=== PATIENT | male | born 1945 | race Caucasian/White ===

== ENCOUNTER 2018-09-27 09:23 | Day surgery (SDC) | payer MEDICARE, OTHER, SELFPAY ==
--- NOTE | 2018-09-27 | PATH_ITS ---
[facility] Accession Number: [id number] . 01 Material submitted: . TRANSVERSE COLON POLYP . 02 Diagnosis: Biopsy, Transverse Colon Polyp: Tubular adenoma. MRV/09/29/2018 . 02 Electronically signed: . Jan Mobley MD, Pathologist NPI- [id number] . 01 Gross description: . Received one formalin-filled container labeled with the patient's name and labeled transverse colon polyp. The specimen consists of a 0.3 cm portion of tissue. Entirely submitted in one cassette. ([facility] [place]:[id number]) /[facility] . 02 Pathologist provided ICD-10: D12.3 . 02 CPT . 487726 Performed at: 01 [facility] [address] [id number] MD Kip Brink MD Phone: [phone] Performed at: 02 [facility] [address] [place], [place] [id number] MD Ting Echeverria MD Phone: [phone]
[2018-09-27 09:36] VITALS: BMI 28.7
[2018-09-27 09:41] VITALS: BP 143/84; PULSE 64; RESP 16; TEMP 36.3; O2SAT 99
--- NOTE | 2018-09-27 09:46 | PM.HP.1 ---
History of Present Illness Date Patient Seen: 09/27/18 Chief complaint: [id number] COLONOSOCPY W/POSS BX Narrative: The patient is a 73-year-old male who was last seen in our office on August 29, 2018 due to a positive FIT test. Please refer to that note for further details. Patient has had no visual bleeding in the form of melena, hematemesis, or hematochezia. He has had no prior colonoscopies and there is no family history of colon cancer to his knowledge Patient History Medical History Hypercholesterolemia (Acute) Hypertension (Acute) Hypothyroidism (Acute) Positive FIT (fecal immunochemical test) (Acute) Surgical History History of tonsillectomy (Acute) Social History household members: spouse Family & Social History Social History: household members spouse Meds Home Medications Medication Instructions Recorded Confirmed Type amlodipine 09/26/18 History atorvastatin 09/26/18 History losartan 09/26/18 History Allergies Allergy/AdvReac Type Severity Reaction Status Date / Time No Known Drug Allergies Allergy Verified 09/26/18 14:23 Exam Vital Signs (past 8 hours): - 09/27/18 09:41 Temperature 97.3 F L Pulse Rate 64 Respiratory Rate 16 Blood Pressure 143/84 H Pulse Oximetry 99 Oxygen Delivery Method Room Air Narrative Exam Narrative: General: Patient is overweight, not in apparent distress Cardiovascular: Regular rate and rhythm, no murmurs, rubs, or gallops; no evidence of edema; no palpable abdominal aortic aneurysm Gastrointestinal: Normoactive bowel sounds, soft, nontender, nondistended, no rebound tenderness, no hepatosplenomegaly, no evidence of hernia Assessment & Plan Assessment & Plan narrative: 73-year-old male with history of a positive FIT test who is here for colonoscopy Regarding the procedure(s), the risks and potential complications, benefits, and alternatives (including not doing the procedure) were discussed with the patient. The risks include but are not limited to bleeding, splenic injury, infection, perforation which may require surgical intervention, missed lesions, and adverse reactions to sedative medicines. After a question and answer period, the patient agreed to proceed with the procedure(s) and gives informed consent.
--- NOTE | 2018-09-27 09:48 | PM.OP.ENDO ---
Operative Date/Time/Diagnoses Date of procedure: 09/27/18 Procedure Notes Procedure in detail: Surgeon: Shen Chaney MD Procedure: Colonoscopy with polypectomy Preoperative diagnosis: Positive FIT Postoperative diagnosis: Transverse colon polyp status post polypectomy, grade 2 internal hemorrhoids Medications: Conscious sedation using 4 mg IV of Midazolam and 100 mcg IV of Fentanyl Preanesthesia Assessment An H and P was performed/updated and the Px?s ASA class is 2. The procedure was discussed in detail with the patient. The potential risks and complications including infection, bleeding, missed lesions, perforation, need for surgery in case of perforation, prolonged hospital stay, and were explained. A brief question and answer period was allotted and once all questions were answered, informed consent was obtained. The patient was brought back to the procedure room and placed on standard monitoring. The patient?s vital signs were monitored continuously throughout the entire procedure. Prior to starting, a timeout was performed to confirm the patient?s identity, allergies, medications, and procedure. Procedure in detail The patient was placed in left lateral decubitus position and once adequate sedation was obtained a FATUMA was performed. The digital rectal examination did not reveal any palpable lesions. The tip of the colonoscope was placed in the anal canal and advanced without difficulty all the way to the cecum which was identified by the appendiceal orifice and the ileocecal valve. The terminal ileum was intubated to a distance of 5 cm from the ileocecal valve and the mucosa appeared without abnormality. The colonoscope was then brought back to the cecum and aareful examination of all jeffers of the colon was performed with irrigation of any residual stool. In the proximal transverse colon there was note of a 2 mm sessile polyp which was removed by means of cold Jumbo forceps. Resection and retrieval were complete with minimal bleeding Retroflexion was performed in the rectum which revealed grade 2 nonbleeding internal hemorrhoids. The patient tolerated the procedure well and will be brought back to the recovery area to be discharged once criteria are met. The prep was judged to be good/excellent and adequate to identify polyps less than 5 mm. The withdrawal time was 10 min. The total physician intraservice time was 20 min. Complications There were no complications and estimated blood loss was minimal. Recommendations: Resume previous diet Continue outPx medications Follow up pathology results Repeat colonoscopy in 5 years for surveillance if the polyp is adenomatous GI Office follow up as needed An emergency contact number was given to the patient for any complications related to the procedure
[2018-09-27] MEDS: SODIUM CHLORIDE 0.9% 1,000 ML 70 ML IV (09:50)
[2018-09-27] MEDS: fentaNYL 250 MCG/5 ML INJ IV (10:05)
[2018-09-27] MEDS: MIDAZOLAM 5 MG/5 ML VIAL IV (10:05)
[2018-09-27 10:21] VITALS: BP 105/57; PULSE 64; RESP 15; TEMP 36.4; O2SAT 97
--- NOTE | 2018-09-27 10:21 | PM.DS.1 ---
History of Present Illness Chief complaint: [id number] COLONOSOCPY W/POSS BX Narrative: The patient is a 73-year-old male who was last seen in our office on August 29, 2018 due to a positive FIT test. Please refer to that note for further details. Patient has had no visual bleeding in the form of melena, hematemesis, or hematochezia. He has had no prior colonoscopies and there is no family history of colon cancer to his knowledge Discharge Providers Discharge Date: 09/27/18 Primary care physician: Sabino Adhikari MD Discharge provider: Shen Chaney MD Exam Vital Signs (past 8 hours): - 09/27/18 09:41 Temperature 97.3 F L Pulse Rate 64 Respiratory Rate 16 Blood Pressure 143/84 H Pulse Oximetry 99 Oxygen Delivery Method Room Air Narrative Exam Narrative: General: Patient is overweight, not in apparent distress Cardiovascular: Regular rate and rhythm, no murmurs, rubs, or gallops; no evidence of edema; no palpable abdominal aortic aneurysm Gastrointestinal: Normoactive bowel sounds, soft, nontender, nondistended, no rebound tenderness, no hepatosplenomegaly, no evidence of hernia Discharge Plan Discharge Plan Patient Disposition: Home Discharge comment: Resume your usual meds today once home. Discharge Med Rec/Prescriptions Prescriptions: Continued amlodipine RF: 0 atorvastatin RF: 0 losartan RF: 0 levothyroxine 100 mcg PO DAILY RF: 0 Follow up/Referrals: Sabino Adhikari MD [Primary Care Provider] - Discharge Orders: Discharge (Order); Ordered 09/27/18 Ordered By: Shen Chaney Provider Discharge Instructions Diet: Diet as Tolerated Visit Report/Discharge Packet Stand Alone Forms: Colonoscopy Result: [facility] Discharge Data Primary Care Provider: Sabino Adhikari V Attending Provider: Shen Chaney
[2018-09-27 10:26] VITALS: BP 118/70; PULSE 75; RESP 12; O2SAT 96
[2018-09-27 10:31] VITALS: BP 129/66; PULSE 62; RESP 18; O2SAT 95
[2018-09-27 10:34] VITALS: BP 113/64; PULSE 71; RESP 15; TEMP 36.2; O2SAT 96
[2018-09-27 10:46] VITALS: BP 121/70; PULSE 77; RESP 17; TEMP 36.3; O2SAT 98
== END 2018-09-27 11:00 | disposition home or self-care (01) ==
PROVIDERS: PCP Internal Medicine; Visit Provider Internal Medicine Gastroenterology
PROC: 0DJD8ZZ Inspection of Lower Intestinal Tract, Via Natural or Artificial Opening Endoscopic (ICD-10-PCS; CPT 45378; principal; 2018-09-27 10:30)
DX: R19.5 Other fecal abnormalities (principal); D12.3 Benign neoplasm of transverse colon; K64.1 Second degree hemorrhoids; E78.00 Pure hypercholesterolemia, unspecified; I10 Essential (primary) hypertension; E03.9 Hypothyroidism, unspecified
CPT/HCPCS: 45380; 88305; J2250; J3010

== ENCOUNTER → 2019-10-11 18:42 | Outpatient (ROUT) | payer MEDICARE, OTHER, SELFPAY ==
[2019-10-11 19:13] LABS: Add Manual Diff / Slide Review NO; Basophils Absolute Auto 100 /uL (0-100); Basophils Percent Auto 0.7 % (0-2); Eosinophils Absolute Auto 100 /uL (0-450); Eosinophils Percent Auto 1.4 % (2-4); Hematocrit 47.6 % (41-53); Hemoglobin 16.2 g/dL (13.5-17.5); Lymphocytes Absolute Auto 1900 /uL (1100-4500); Lymphocytes Percent Auto 28.4 % (25-40); Mean Corpuscular Hemoglobin 30.8 PG (26-34); Mean Corpuscular Volume 90.7 fL (80-100); Monocytes Absolute Auto 600 /uL (0-900); Monocytes Percent Auto 8.1 % (3-14); Neutrophils Absolute Auto 4200 /uL (1500-7000); Neutrophils Percent Auto 61.4 % (50-75); Platelet Count 237 X10^3/uL (150-400); Red Blood Cell Count 5.24 X10^6/uL (4.5-5.9); Red Cell Distribution Width 13.5 % (11.6-14.8); White Blood Cell Count 6.8 X10^3/uL (4.5-11.0)
[2019-10-11 19:38] LABS: Alanine Aminotransferase 26 IU/L (<50); Albumin 4.4 g/dL (3.5-5.0); Albumin Globulin Ratio 1.5 (1.0-2.8); Alkaline Phosphatase 80 U/L (38-126); Aspartate Aminotransferase 30 IU/L (17-59); Bilirubin Total 1.4 mg/dL (0.2-1.3); Blood Urea Nitrogen 19 mg/dL (9-20); Carbon Dioxide 27 mmol/L (22-32); Chloride 102 mmol/L (98-107); Cholesterol 109 mg/dL (140-199); Estimated Glomerular Filt Rate > 60.0 mL/min (>60); Globulin 2.9 g/dL (1.7-4.1); Glucose 80 mg/dL (80-110); HDL Cholesterol 31 mg/dL (40-60); HEMOLYSIS < 15 (0-50); LDL Cholesterol Calculated 45 mg/dL (<100); Potassium 4.1 mmol/L (3.4-5.1); Sodium 138 mmol/L (137-145); Total Protein 7.3 g/dL (6.3-8.2); Triglycerides 163 mg/dL (35-150)
== END ==
PROVIDERS: PCP Internal Medicine; Visit Provider Internal Medicine
DX: I20.8 Other forms of angina pectoris (principal); E78.2 Mixed hyperlipidemia; E03.9 Hypothyroidism, unspecified
CPT/HCPCS: 80053; 80061; 84443; 85025

== ENCOUNTER → 2020-05-19 19:22 | Outpatient (ROUT) | payer MEDICARE, OTHER, SELFPAY ==
[2020-05-19 20:25] LABS: Aspartate Aminotransferase 28 IU/L (17-59); BUN Creatinine Ratio 24.3 (6-22); Blood Urea Nitrogen 25 mg/dL (9-20); Calcium 10.1 mg/dL (8.4-10.2); Carbon Dioxide 28 mmol/L (22-32); Chloride 101 mmol/L (98-107); Cholesterol 112 mg/dL (140-199); Estimated Glomerular Filt Rate > 60.0 mL/min (>60); Glucose 82 mg/dL (80-110); HDL Cholesterol 30 mg/dL (40-60); HEMOLYSIS < 15 (0-50); LDL Cholesterol Calculated 48 mg/dL (<100); Sodium 138 mmol/L (137-145); Triglycerides 168 mg/dL (35-150)
[2020-05-19 20:28] LABS: Add Manual Diff / Slide Review NO; Basophils Absolute Auto 100 /uL (0-100); Basophils Percent Auto 0.8 % (0-2); Eosinophils Absolute Auto 100 /uL (0-450); Eosinophils Percent Auto 1.6 % (2-4); Hematocrit 45.8 % (41-53); Hemoglobin 15.5 g/dL (13.5-17.5); Lymphocytes Absolute Auto 1800 /uL (1100-4500); Lymphocytes Percent Auto 26.2 % (25-40); Mean Corpuscular HGB Conc 33.9 % (30-36); Mean Corpuscular Hemoglobin 30.4 PG (26-34); Mean Corpuscular Volume 89.4 fL (80-100); Monocytes Absolute Auto 700 /uL (0-900); Monocytes Percent Auto 10.7 % (3-14); Neutrophils Absolute Auto 4200 /uL (1500-7000); Neutrophils Percent Auto 60.7 % (50-75); Platelet Count 240 X10^3/uL (150-400); Red Blood Cell Count 5.12 X10^6/uL (4.5-5.9); Red Cell Distribution Width 13.4 % (11.6-14.8); White Blood Cell Count 6.9 X10^3/uL (4.5-11.0)
[2020-05-19 20:54] LABS: TSH w/ Reflex to FT4 5.23 uIU/mL (0.47-4.68)
[2020-05-20 00:02] LABS: Free T4, Direct Thyroxine 1.32 ng/dL (0.78-2.19)
== END ==
PROVIDERS: PCP Internal Medicine; Visit Provider Internal Medicine
DX: I10 Essential (primary) hypertension (principal); E78.2 Mixed hyperlipidemia
CPT/HCPCS: 80048; 80061; 84439; 84443; 84450; 85025

== ENCOUNTER → 2020-05-22 13:05 | Outpatient (CLI) | payer MEDICARE, OTHER, SELFPAY ==
--- NOTE | 2020-05-22 | DI.RAD.S_ITS ---
PROCEDURE: FL BARIUM SWALLOW INDICATIONS: Dysphagia, unspecified COMPARISON: None. FINDINGS: Function: There is normal esophageal peristalsis. Mild gastroesophageal reflux was elicited. There is obstruction transit of a calibrated barium tablet at the junction secondary to Schatzki's ring. Morphology: Air-contrast images demonstrate normal mucosal morphology. There is a small hiatal hernia. Limited images of the stomach demonstrate normal appearance. IMPRESSION: 1. Obstruction of a calibrated barium tablet at the gastroesophageal junction secondary to Schatzki's ring. Recommend EGD for further evaluation. 2. Small hiatal hernia. 3. Mild gastroesophageal reflux. Dictated by: Ashley Quiroz M.D. on 05/22/2020 at 15:29 Approved by: Ashley Quiroz M.D. on 05/22/2020 at 15:33
== END ==
PROVIDERS: PCP Internal Medicine; Referring Provider Internal Medicine; Visit Provider Internal Medicine
DX: R13.10 Dysphagia, unspecified (principal); K22.2 Esophageal obstruction; K44.9 Diaphragmatic hernia without obstruction or gangrene; K21.9 Gastro-esophageal reflux disease without esophagitis
CPT/HCPCS: 74220

== ENCOUNTER → 2020-09-15 08:57 | Outpatient (CLI) | payer MEDICARE, OTHER, SELFPAY ==
[2020-09-15 11:14] LABS: COVID19 -Nasal RAPID Negative (Negative)
== END ==
PROVIDERS: PCP Internal Medicine; Visit Provider Nurse Practitioner Family
DX: Z01.812 Encounter for preprocedural laboratory examination (principal); Z20.822 Contact with and (suspected) exposure to COVID-19
CPT/HCPCS: 87635; C9803

== ENCOUNTER 2020-09-17 08:58 | Day surgery (SDC) | payer MEDICARE, OTHER, SELFPAY ==
[2020-09-17] VITALS (7 sets, daily range): BP systolic 109–122; BP diastolic 64–70; PULSE 57–66; RESP 12–18; TEMP 36.2–36.8; O2SAT 94–100; BMI 28.7
--- NOTE | 2020-09-17 | PATH_ITS ---
[facility] Accession Number: [id number] . 01 Material submitted: . stomach - FUNDUS POLYP . 02 Diagnosis: Fundus Polyp: Fundic gland polyp. No evidence of Helicobacter organisms on H/E stain. Negative for intestinal metaplasia. Negative for dysplasia and malignancy. MRV 09/19/2020 1019 Local . 02 Electronically signed: . Paige Loza MD, Pathologist NPI- [id number] . 01 Gross description: . FUNDUS POLYP: Received in formalin are 2 fragment(s) of isaac, soft tissue measuring 0.2 x 0.2 x 0.2 cm to 0.3 x 0.3 x 0.3 cm submitted entirely in 1 cassette(s) /MARIE 09/18/20201932 Local . 02 Pathologist provided ICD-10: R13.10 . 02 CPT . 249289 Performed at: 01 [facility] [address] [facility] [place], [place], [place] [id number] MD Kip Brink MD Phone: [phone] Performed at: 02 [facility] [address] [place], [place] [id number] MD Ting Echeverria MD Phone: [phone]
--- NOTE | 2020-09-17 09:33 | PM.HP.1 ---
History of Present Illness History of Present Illness Date Patient Seen: 09/17/20 Chief complaint: EGD W/DILATION Narrative: Dysphagia Patient History Medical History (Updated 09/26/18 @ 14:22 by Citlaly Nelson RN) Hypercholesterolemia Hypertension Hypothyroidism Positive FIT (fecal immunochemical test) Surgical History (Updated 09/26/18 @ 14:22 by Citlaly Nelson RN) History of tonsillectomy Family & Social History Social History: household members spouse Tobacco & Substance use: Smoking Status Never smoker alcohol intake current alcohol intake frequency holiday/special occasion Substance Use Type does not use Meds Home Medications and Allergies Home Medications Medication Instructions Recorded Confirmed Type atorvastatin 40 mg PO DAILY 09/26/18 09/17/20 History losartan 100 mg PO DAILY 09/26/18 09/17/20 History levothyroxine 100 mcg PO DAILY 09/27/18 09/17/20 History aspirin [Aspir-81] 81 mg PO DAILY 09/17/20 09/17/20 History potassium chloride 20 meq PO DAILY 09/17/20 09/17/20 History Allergies Allergy/AdvReac Type Severity Reaction Status Date / Time No Known Drug Allergies Allergy Verified 09/17/20 09:08 Exam Vital Signs (past 8 hours): - 09/17/20 09:20 Temperature 97.2 F L Pulse Rate 61 Respiratory Rate 18 Blood Pressure 122/68 Pulse Oximetry 100 Oxygen Delivery Method Room Air Narrative Exam Narrative: Oropharynx free of lesions Chest clear to auscultation percussion Cardiac exam reveals no S3 or murmur Assessment & Plan Assessment & Plan narrative: Dysphagia with upper GI showing a partially obstructing Schatzki's ring. This held up of barium coated pill. Risks, benefits, alternatives to EGD and dilation and been discussed. Further recommendations will follow the results of the upper endoscopy.
--- NOTE | 2020-09-17 09:34 | P.OP.ENDO_ITS ---
Operative Date/Time/Diagnoses Date of procedure: 09/17/20 Pre-op diagnosis: See indication and findings Procedure & Clinicians Study performed: EGD with dilation Same procedure as scheduled: Yes Indications: Dysphagia and abnormal upper GI Surgeon: Nissa Kat Procedure Notes Procedure in detail: After informed consent was obtained the patient was placed in left lateral decubitus position. Video upper scope was placed into the oropharynx with the patient's ultrasound in the esophagus. The esophagus, stomach, duodenum were carefully examined. On withdrawal, retroflexed view the GE junction was performed. The scope was removed. The patient tolerated procedure well. Blood loss none Complications none Sedation Total sedation time 11 minutes Fentanyl 100 mg Versed 4 mg IV titration Findings 1. Mild distal Schatzki's ring. This is dilated with 54 Indonesian Savary dilator on withdrawal. 2. Normal stomach 3. Normal duodenal bulb and sweep We will merely follow Mr. Dill to see how he does
[2020-09-17] MEDS: fentaNYL 250 MCG/5 ML INJ IV (10:28)
[2020-09-17] MEDS: MIDAZOLAM 5 MG/5 ML VIAL IV (10:28)
== END 2020-09-17 11:20 | disposition home or self-care (01) ==
PROVIDERS: PCP Internal Medicine; Referring Provider Internal Medicine Gastroenterology; Visit Provider Internal Medicine Gastroenterology
PROC: 0DJ08ZZ Inspection of Upper Intestinal Tract, Via Natural or Artificial Opening Endoscopic (ICD-10-PCS; CPT 43235; principal; 2020-09-17 10:00)
DX: K22.2 Esophageal obstruction (principal); E78.00 Pure hypercholesterolemia, unspecified; I10 Essential (primary) hypertension; E03.9 Hypothyroidism, unspecified; D68.51 Activated protein C resistance
CPT/HCPCS: 43248; J2250; J3010

== ENCOUNTER → 2021-12-15 10:50 | Outpatient (CLI) | payer MEDICARE, OTHER, SELFPAY ==
--- NOTE | 2021-12-15 10:53 | DI.RAD.S_ITS ---
PROCEDURE: XR CERVICAL SPINE 2V OR 3V INDICATIONS: left arm and hand pain, c8/t1/t2 distribution TECHNIQUE: 3 view(s) of the cervical spine were acquired. COMPARISON: None. FINDINGS: Bones: No fractures or dislocations to the C7-T1 level. The lateral masses of C1 appear intact on the odontoid view. No suspicious bony lesions. There is grade 1 retrolisthesis of C3 on C4 measuring 5 mm. Severe disc space narrowing is present at C3-4, C6-7. Anterior osteophytes are present at C6-7. Multilevel uncovertebral hypertrophy are present. Soft tissues: No prevertebral soft tissue swelling. IMPRESSION: Multilevel degenerative changes most severe at C3-4 and C6-7. Dictated by: Caitie Wang M.D. on 12/15/2021 at 15:23 Approved by: Caitie Wang M.D. on 12/15/2021 at 15:24
--- NOTE | 2021-12-15 10:53 | DI.RAD.S_ITS ---
PROCEDURE: XR THORACIC SPINE 2V INDICATIONS: left arm and hand pain, C8/T1/T2 distribution TECHNIQUE: 2 views of the thoracic spine were acquired. COMPARISON: None. FINDINGS: Bones: No fractures or dislocations. No suspicious bony lesions. 12 pairs of ribs are noted, and appear intact where visualized. Anterior bridging osteophytes are noted within the midthoracic spine. Multilevel degenerative disc space narrowing. Soft tissues: No paravertebral stripe thickening. IMPRESSION: Small anterior bridging osteophytes are noted. Dictated by: Caitie Wang M.D. on 12/15/2021 at 15:24 Approved by: Caitie Wang M.D. on 12/15/2021 at 15:25
== END ==
PROVIDERS: PCP Internal Medicine; Referring Provider Internal Medicine; Visit Provider Internal Medicine
DX: M79.602 Pain in left arm (principal); M79.642 Pain in left hand; M25.78 Osteophyte, vertebrae
CPT/HCPCS: 72040; 72070

== ENCOUNTER → 2022-12-03 14:18 | Outpatient (CLI) | payer MEDICARE, OTHER, SELFPAY ==
[2022-12-03 14:55] LABS: Hematocrit 44.7 % (41-53); Hemoglobin 15.4 g/dL (13.5-17.5); Mean Corpuscular HGB Conc 34.3 % (30-36); Mean Corpuscular Hemoglobin 30.6 PG (26-34); Platelet Count 216 X10^3/uL (150-400); Red Blood Cell Count 5.02 X10^6/uL (4.5-5.9); Red Cell Distribution Width 13.5 % (11.6-14.8)
[2022-12-03 15:28] LABS: Alanine Aminotransferase 24 IU/L (<50); Albumin 4.1 g/dL (3.5-5.0); Albumin Globulin Ratio 1.4 (1.0-2.8); Alkaline Phosphatase 78 U/L (38-126); Aspartate Aminotransferase 27 IU/L (17-59); BUN Creatinine Ratio 20.7 (6-22); Bilirubin Total 1.1 mg/dL (0.2-1.3); Blood Urea Nitrogen 24 mg/dL (9-20); Calcium 9.4 mg/dL (8.4-10.2); Carbon Dioxide 27 mmol/L (22-32); Chloride 102 mmol/L (98-107); Cholesterol 105 mg/dL (140-199); Estimated Glomerular Filt Rate > 60 mL/min (>60); Globulin 2.9 g/dL (1.7-4.1); Glucose 124 mg/dL (80-110); HDL Cholesterol 27 mg/dL (40-60); HEMOLYSIS < 15 (0-50); LDL Cholesterol Calculated 41 mg/dL (<100); Potassium 4.2 mmol/L (3.4-5.1); Sodium 138 mmol/L (137-145); Triglycerides 183 mg/dL (35-150)
[2022-12-03 15:58] LABS: TSH w/ Reflex to FT4 3.64 uIU/mL (0.47-4.68)
== END ==
PROVIDERS: PCP Internal Medicine; Referring Provider Internal Medicine; Visit Provider Internal Medicine
DX: E03.9 Hypothyroidism, unspecified (principal); E78.2 Mixed hyperlipidemia; I10 Essential (primary) hypertension; N40.0 Benign prostatic hyperplasia without lower urinary tract symptoms
CPT/HCPCS: 36415; 80053; 80061; 84443; 85027

== ENCOUNTER → 2023-03-16 12:08 | Outpatient (CLI) | payer MEDICARE, OTHER, SELFPAY ==
[2023-03-16 13:51] LABS: Vitamin B12 378 pg/mL (239-931)
[2023-03-18 13:53] LABS: Albumin 3.6 g/dL (2.9-4.4); Alpha-1-Globulin 0.2 g/dL (0.0-0.4); Alpha-2-Globulin 0.8 g/dL (0.4-1.0); Globulin Total 2.8 g/dL (2.2-3.9); Protein, Total 6.4 g/dL (6.0-8.5)
== END ==
PROVIDERS: PCP Internal Medicine; Referring Provider Internal Medicine; Visit Provider Internal Medicine
DX: E53.8 Deficiency of other specified B group vitamins (principal); R77.9 Abnormality of plasma protein, unspecified
CPT/HCPCS: 36415; 82607; 84155; 84165

== ENCOUNTER → 2023-09-21 10:52 | Outpatient (CLI) | payer MEDICARE, OTHER, SELFPAY ==
[2023-09-21 12:41] LABS: Aspartate Aminotransferase 25 IU/L (17-59); BUN Creatinine Ratio 23.8 (6-22); Blood Urea Nitrogen 24 mg/dL (9-20); Calcium 9.6 mg/dL (8.4-10.2); Carbon Dioxide 28 mmol/L (22-32); Chloride 103 mmol/L (98-107); Cholesterol 123 mg/dL (140-199); Estimated Glomerular Filt Rate > 60 mL/min (>60); Glucose 59 mg/dL (80-110); HDL Cholesterol 28 mg/dL (40-60); HEMOLYSIS 15 (0-50); LDL Cholesterol Calculated 47 mg/dL (<100); Potassium 4.5 mmol/L (3.4-5.1); Sodium 136 mmol/L (137-145); Triglycerides 242 mg/dL (35-150)
[2023-09-21 13:09] LABS: TSH w/ Reflex to FT4 5.42 uIU/mL (0.47-4.68)
[2023-09-21 19:04] LABS: Free T4, Direct Thyroxine 1.51 ng/dL (0.78-2.19)
== END ==
PROVIDERS: PCP Internal Medicine; Referring Provider Internal Medicine; Visit Provider Internal Medicine
DX: E03.9 Hypothyroidism, unspecified (principal); E78.2 Mixed hyperlipidemia; I10 Essential (primary) hypertension
CPT/HCPCS: 36415; 80048; 80061; 84439; 84443; 84450

== ENCOUNTER 2023-12-14 10:23 | Day surgery (SDC) | payer MEDICARE, OTHER, SELFPAY ==
[2023-12-14 11:26] VITALS: BP 157/80; PULSE 61; RESP 16; TEMP 36.4; O2SAT 98
[2023-12-14] MEDS: LACTATED RINGERS 1,000 ML 42 ML IV (11:35)
--- NOTE | 2023-12-14 11:51 | PM.PREOP ---
Pre-operative Note Interval Note History & Physical reviewed/Exam performed by Physician: Yes Changes to H&P: No ASA Class (for procedural sedation): III
--- NOTE | 2023-12-14 11:51 | PM.OP.COLON ---
Operative Date/Time/Diagnoses Date of procedure: 12/14/23 Pre-op diagnosis: See indication and findings Procedure & Clinicians Study performed: Colonoscopy Indications: History of polyps would also small amount of rectal bleeding Surgeon: Nissa Kat Procedure Notes Procedure in detail: After informed consent was obtained the patient was placed in left lateral decubitus position. The video colonoscope was introduced the rectum slowly advanced cecum. On slow withdrawal mucosa was carefully examined. The scope was removed. The patient tolerated procedure well. Preparation was good. Blood loss none Complications none Sedation mac Findings 1. Semi solid stool found in the rectum and sigmoid colon unable to be washed and suctioned away. Mr. Irene will need to be rescheduled with extra preparation.
[2023-12-14 12:03] VITALS: BP 109/58; PULSE 62; RESP 10; TEMP 36.2; O2SAT 97
[2023-12-14 12:08] VITALS: BP 117/59; PULSE 61; RESP 12; TEMP 36.2; O2SAT 96
[2023-12-14 12:23] VITALS: BP 111/58; PULSE 62; RESP 12; TEMP 36.2; O2SAT 99
[2023-12-14 12:42] VITALS: BP 136/80; PULSE 71; RESP 15; O2SAT 98
== END 2023-12-14 12:51 | disposition home or self-care (01) ==
PROVIDERS: PCP Internal Medicine; Referring Provider Internal Medicine Gastroenterology; Visit Provider Internal Medicine Gastroenterology
PROC: 0DJD8ZZ Inspection of Lower Intestinal Tract, Via Natural or Artificial Opening Endoscopic (ICD-10-PCS; CPT 45378; principal; 2023-12-14 11:30)
DX: K92.1 Melena (principal); Z86.010 Personal history of colon polyps; Z53.09 Procedure and treatment not carried out because of other contraindication
CPT/HCPCS: 45378; J2704

== ENCOUNTER 2024-01-11 10:38 | Day surgery (SDC) | payer MEDICARE, OTHER, SELFPAY ==
[2024-01-11] MEDS: LACTATED RINGERS 1,000 ML 100 ML IV (11:15)
[2024-01-11 11:16] VITALS: BP 128/73; PULSE 61; RESP 16; TEMP 36.4; O2SAT 98
--- NOTE | 2024-01-11 11:27 | PM.HP.1 ---
History of Present Illness History of Present Illness Date Patient Seen: 01/11/24 Chief complaint: Dx Colonoscopy w/poss bx Narrative: History of intermittent rectal bleeding with history of adenomatous colon polyps. Last attempted colonoscopy with poor prep. Now here for repeat colonoscopy [facility] Medical History (Updated 08/30/23 @ 16:27 by Sabino Adhiakri MD) Sensorineural hearing loss Polyneuropathy, unspecified Congenital hearing loss of right ear Impaired fasting glucose Coronary artery disease Obesity (BMI 30.0-34.9) History of colonic polyps GERD without esophagitis Acquired hypothyroidism Mixed hyperlipidemia Essential hypertension Surgical History History of tonsillectomy Social History household members: spouse Smoking Status: Never smoker alcohol intake: current Meds Home Medications and Allergies Home Medications Medication Instructions Recorded Confirmed Type aspirin 81 mg tablet,delayed 81 mg PO DAILY 09/17/20 01/11/24 History release cholecalciferol (vitamin D3) 25 25 mcg PO DAILY 12/03/22 12/14/23 History mcg (1,000 unit) capsule clopidogrel 75 mg tablet 75 mg PO DAILY 12/03/22 01/11/24 History metoprolol succinate 25 mg 25 mg PO DAILY 12/03/22 01/11/24 History tablet,extended release 24 hr omega-3 fatty acids 1,000 mg 1,000 mg PO DAILY 12/03/22 12/14/23 History capsule atorvastatin 40 mg tablet 40 mg PO DAILY #90 tabs 06/22/23 01/11/24 Rx levothyroxine 100 mcg tablet 100 mcg PO DAILY #90 tabs 06/22/23 01/11/24 Rx losartan 50 mg tablet 50 mg PO DAILY #90 tabs 06/22/23 01/11/24 Rx nitroglycerin 0.4 mg sublingual 0.4 mg sublingual Q5-15M PRN chest 06/22/23 08/30/23 Rx tablet pain #25 tabs pantoprazole 40 mg tablet,delayed 40 mg PO DAILY 08/30/23 12/14/23 History release isosorbide mononitrate 60 mg 60 mg PO DAILY #90 tabs 10/24/23 01/11/24 Rx tablet,extended release 24 hr Allergies Allergy/AdvReac Type Severity Reaction Status Date / Time No Known Drug Allergies Allergy Verified 01/11/24 10:57 Exam Vital Signs (past 8 hours): - 01/11/24 11:16 Temperature 97.6 F Pulse Rate 61 Respiratory Rate 16 Blood Pressure 128/73 Pulse Oximetry 98 Oxygen Delivery Method Room Air Oxygen Delivery Method Room Air Narrative Exam Narrative: Oropharynx free of lesions Chest clear to auscultation percussion Cardiac exam reveals no S3 or murmur Assessment & Plan Assessment & Plan narrative: History of adenomatous colon polyps and mild rectal bleeding need for colonoscopy. Risks, benefits, and alternatives have been explained.
--- NOTE | 2024-01-11 11:29 | P.OP.COLON_ITS ---
Operative Date/Time/Diagnoses Date of procedure: 01/11/24 Pre-op diagnosis: See indication and findings Procedure & Clinicians Study performed: Colonoscopy Indications: Adenomatous colon polyps and intermittent rectal bleeding Procedure Notes Procedure in detail: After informed consent was obtained the patient was placed in left lateral de cubitus position. The video colonoscope was introduced the rectum slowly advanced to the left colon due to poor preparation with solid stool present.. Preparation was poor. On slow withdrawal mucosa was carefully examined. The scope was removed. The patient tolerated procedure well. Blood loss none Complications none Sedation mac Findings 1. Normal left-sided colon within the limits of the examination due to poor prep with solid stool I had a long discussion with patient regarding repeating a colonoscopy or not. Preparation for this procedure involved 2 gal of lavage. In the balance will we decided not to reschedule anything at this time. We know that we cleared this colon on last colonoscopy. A cannot make a decision about rescheduling or not at this time. I would suggest the next time he sees Dr. Adhikari he discusses whether or not he wants to go through with another attempt.
[2024-01-11 12:05] VITALS: BP 91/52; PULSE 55; RESP 18; TEMP 36.2; O2SAT 93
[2024-01-11 12:10] VITALS: BP 94/54; PULSE 54; RESP 16; O2SAT 93
[2024-01-11 12:15] VITALS: BP 112/62; PULSE 57; RESP 12; TEMP 36.4; O2SAT 98
[2024-01-11 12:21] VITALS: BP 113/65; PULSE 53; RESP 14; TEMP 36.6; O2SAT 95
== END 2024-01-11 12:45 | disposition home or self-care (01) ==
PROVIDERS: PCP Internal Medicine; Referring Provider Internal Medicine Gastroenterology; Visit Provider Internal Medicine Gastroenterology
PROC: 0DJD8ZZ Inspection of Lower Intestinal Tract, Via Natural or Artificial Opening Endoscopic (ICD-10-PCS; CPT 45378; principal; 2024-01-11 11:30)
DX: K62.5 Hemorrhage of anus and rectum (principal); Z86.010 Personal history of colon polyps; Z53.09 Procedure and treatment not carried out because of other contraindication
CPT/HCPCS: 45378; J2704

== ENCOUNTER → 2024-02-01 10:11 | Outpatient (CLI) | payer MEDICARE, OTHER, SELFPAY ==
[2024-02-01 11:24] LABS: Hematocrit 44.5 % (41-53); Hemoglobin 15.2 g/dL (13.5-17.5); Mean Corpuscular HGB Conc 34.2 % (30-36); Mean Corpuscular Volume 90.6 fL (80-100); Platelet Count 194 X10^3/uL (150-400); Red Blood Cell Count 4.91 X10^6/uL (4.5-5.9); Red Cell Distribution Width 13.8 % (11.6-14.8); White Blood Cell Count 6.4 X10^3/uL (4.5-11.0)
[2024-02-01 11:45] LABS: Alanine Aminotransferase 27 IU/L (<50); Albumin 4.1 g/dL (3.5-5.0); Albumin Globulin Ratio 1.4 (1.0-2.8); Alkaline Phosphatase 62 U/L (38-126); Aspartate Aminotransferase 39 IU/L (17-59); BUN Creatinine Ratio 18.4 (6-22); Bilirubin Total 1.8 mg/dL (0.2-1.3); Blood Urea Nitrogen 19 mg/dL (9-20); Calcium 9.3 mg/dL (8.4-10.2); Carbon Dioxide 28 mmol/L (22-32); Chloride 105 mmol/L (98-107); Cholesterol 111 mg/dL (140-199); Estimated Glomerular Filt Rate > 60 mL/min (>60); Glucose 98 mg/dL (80-110); HDL Cholesterol 32 mg/dL (40-60); HEMOLYSIS 81 (0-50); LDL Cholesterol Calculated 54 mg/dL (<100); Potassium 5.3 mmol/L (3.4-5.1); Sodium 138 mmol/L (137-145); Total Protein 7.1 g/dL (6.3-8.2); Triglycerides 125 mg/dL (35-150)
== END ==
PROVIDERS: PCP Internal Medicine; Referring Provider Nurse Practitioner Family; Visit Provider Nurse Practitioner Family
DX: R53.83 Other fatigue (principal); E78.5 Hyperlipidemia, unspecified; R06.09 Other forms of dyspnea
CPT/HCPCS: 36415; 80053; 80061; 85027

== ENCOUNTER → 2024-04-18 11:21 | Outpatient (CLI) | payer MEDICARE, OTHER, SELFPAY ==
--- NOTE | 2024-04-18 11:22 | DI.RAD.S_ITS ---
PROCEDURE: XR LUMBAR SPINE 2-3V INDICATIONS: low back pain, no trauma TECHNIQUE: 3 views of the lumbar spine were acquired. COMPARISON: None. FINDINGS: Bones: 5 [id number] vertebrae are present. There is normal bony alignment. No vertebral body compression fractures. No suspicious bony lesions. Mild degenerative disc disease and facet osteoarthritis noted over the middle and lower thirds of the lumbosacral spine Soft tissues: Overlying bowel gas pattern is normal. No suspicious soft tissue calcifications. IMPRESSION: Mild degenerative changes along the middle and lower thirds of the lumbosacral spine but no significant spinal or foraminal stenosis is suspected. Dictated by: Sean Mast M.D. on 04/19/2024 at 11:27 Approved by: Sean Mast M.D. on 04/19/2024 at 11:27
== END ==
PROVIDERS: PCP Internal Medicine; Referring Provider Internal Medicine; Visit Provider Internal Medicine
DX: S39.012A Strain of muscle, fascia and tendon of lower back, initial encounter (principal); M47.816 Spondylosis without myelopathy or radiculopathy, lumbar region; M47.817 Spondylosis without myelopathy or radiculopathy, lumbosacral region; M51.37 Other intervertebral disc degeneration, lumbosacral region; X58.XXXA Exposure to other specified factors, initial encounter
CPT/HCPCS: 72100

== ENCOUNTER → 2024-08-27 10:49 | Outpatient (CLI) | payer MEDICARE, OTHER, SELFPAY ==
[2024-08-27 12:16] LABS: Aspartate Aminotransferase 40 IU/L (17-59); BUN Creatinine Ratio 18.2 (6-22); Blood Urea Nitrogen 18 mg/dL (9-20); Carbon Dioxide 23 mmol/L (22-32); Chloride 106 mmol/L (98-107); Cholesterol 127 mg/dL (140-199); Estimated Glomerular Filt Rate > 60 mL/min (>60); Triglycerides 145 mg/dL (35-150)
[2024-08-27 12:22] LABS: Calcium 9.8 mg/dL (8.4-10.2); Glucose 88 mg/dL (80-110); HDL Cholesterol 35 mg/dL (40-60); HEMOLYSIS < 15 (0-50); LDL Cholesterol Calculated 63 mg/dL (<100); Potassium 4.5 mmol/L (3.4-5.1); Sodium 136 mmol/L (137-145)
[2024-08-27 13:12] LABS: Free T4, Direct Thyroxine 1.17 ng/dL (0.78-2.19)
== END ==
PROVIDERS: PCP Internal Medicine; Referring Provider Internal Medicine; Visit Provider Internal Medicine
DX: R73.01 Impaired fasting glucose (principal); I10 Essential (primary) hypertension; E78.2 Mixed hyperlipidemia
CPT/HCPCS: 36415; 80048; 80061; 83036; 84439; 84443; 84450

== ENCOUNTER → 2025-04-15 14:25 | Outpatient (CLI) | payer MEDICARE, OTHER, SELFPAY ==
[2025-04-15 14:50] LABS: Hematocrit 46.0 % (41-53); Hemoglobin 15.7 g/dL (13.5-17.5); Mean Corpuscular HGB Conc 34.1 % (30-36); Mean Corpuscular Hemoglobin 30.8 PG (26-34); Mean Corpuscular Volume 90.4 fL (80-100); Platelet Count 228 X10^3/uL (150-400)
[2025-04-15 15:03] LABS: Hemoglobin A1C% w Est Avg Glu 6.2 % (4.0-6.0)
[2025-04-15 15:12] LABS: Blood Urea Nitrogen 19 mg/dL (9-20); Calcium 9.0 mg/dL (8.4-10.2); Carbon Dioxide 26 mmol/L (22-32); Chloride 104 mmol/L (98-107); Cholesterol 126 mg/dL (140-199); Estimated Glomerular Filt Rate > 60 mL/min (>60); Glucose 92 mg/dL (70-99); HDL Cholesterol 43 mg/dL (40-60); HEMOLYSIS < 15 (0-50); Potassium 4.4 mmol/L (3.4-5.1); Sodium 135 mmol/L (137-145); Triglycerides 138 mg/dL (35-150)
[2025-04-15 15:43] LABS: TSH w/ Reflex to FT4 10.20 uIU/mL (0.47-4.68)
[2025-04-15 16:24] LABS: Free T4, Direct Thyroxine 1.21 ng/dL (0.78-2.19)
== END ==
PROVIDERS: PCP Internal Medicine; Referring Provider Internal Medicine; Visit Provider Internal Medicine
DX: R73.01 Impaired fasting glucose (principal); I25.118 Atherosclerotic heart disease of native coronary artery with other forms of angina pectoris; E03.9 Hypothyroidism, unspecified; E78.2 Mixed hyperlipidemia
CPT/HCPCS: 36415; 80048; 80061; 83036; 84439; 84443; 84450; 85027

== ENCOUNTER → 2025-06-13 16:25 | Outpatient (CLI) | payer MEDICARE, OTHER, SELFPAY ==
[2025-06-13 16:51] LABS: Hematocrit 47.1 % (41-53); Hemoglobin 16.0 g/dL (13.5-17.5); Mean Corpuscular HGB Conc 34.0 % (30-36); Mean Corpuscular Hemoglobin 30.8 PG (26-34); Mean Corpuscular Volume 90.7 fL (80-100); Platelet Count 250 X10^3/uL (150-400)
[2025-06-13 17:51] LABS: Alanine Aminotransferase 29 IU/L (<50); Albumin 2.8 g/dL (3.5-5.0); Albumin Globulin Ratio 1.2 (1.0-2.8); Alkaline Phosphatase 112 U/L (38-126); Blood Urea Nitrogen 17 mg/dL (9-20); Calcium 9.0 mg/dL (8.4-10.2); Carbon Dioxide 24 mmol/L (22-32); Chloride 106 mmol/L (98-107); Estimated Glomerular Filt Rate > 60 mL/min (>60); Globulin 2.3 g/dL (1.7-4.1); Glucose 103 mg/dL (70-99); HEMOLYSIS < 15 (0-50); Potassium 4.3 mmol/L (3.4-5.1); Sodium 136 mmol/L (137-145); Total Protein 5.1 g/dL (6.3-8.2)
[2025-06-13 18:00] LABS: NT-proBNP (BNP-Adult 18+) 5380 pg/mL (<450)
[2025-06-13 18:21] LABS: TSH w/ Reflex to FT4 7.53 uIU/mL (0.47-4.68)
[2025-06-13 18:48] LABS: Free T4, Direct Thyroxine 1.60 ng/dL (0.78-2.19)
== END ==
PROVIDERS: PCP Internal Medicine; Referring Provider Internal Medicine; Visit Provider Internal Medicine
DX: I50.31 Acute diastolic (congestive) heart failure (principal); I50.22 Chronic systolic (congestive) heart failure; I25.118 Atherosclerotic heart disease of native coronary artery with other forms of angina pectoris; E03.9 Hypothyroidism, unspecified
CPT/HCPCS: 36415; 71046; 80053; 83880; 84439; 84443; 85027

== ENCOUNTER → 2025-06-18 14:48 | Outpatient (CLI) | payer MEDICARE, OTHER, SELFPAY ==
--- NOTE | 2025-06-18 14:49 | DI.ECHO.S_ITS ---
[facility] : : [id number] : [place] : : [id number] : : Phone: [phone] Echocardiogram Report + + :Name: BECK BOWENS Study Date: 06/18/2025 Height: 75 in : :[facility] ReadingLocation: Weight: 233 lb : : Gender: Male BSA: 2.3 m2 : :: 1945 Age: 80 yrs BP: 127/75 mmHg: :Reason For Study: CHF : :Ordering Physician: MERRITT, : :AVNI Performed By: Rhys Ramirez : :Referring: AVNI BANG : + + Interpretation Summary There is mild concentric left ventricular hypertrophy. The ejection fraction is estimated to be 55-60%. Diastolic function is indeterminate. The left atrium is mildly dilated. The right ventricle is normal size. Right ventricular systolic function is borderline reduced. There is mild mitral regurgitation. There is mild tricuspid regurgitation. Pulmonary artery pressures cannot be estimated because of the lack of a measurable TR jet velocity but the IVC suggests a CVP of around 8 mmHg. A left pleural effusion noted. There is a trivial pericardial effusion noted. Procedure: A two-dimensional transthoracic echocardiogram with color flow and Doppler was performed. The study quality was technically adequate. Comparison is made with the echocardiogram of 08/13/2020 stress echo. The heart rate ranged between 60-65 bpm during the study. Left Ventricle: The left ventricle is normal in size. There is mild concentric left ventricular hypertrophy. Left ventricular systolic function is normal. The ejection fraction is estimated to be 55-60%. There are no focal wall motion abnormalities. Diastolic function is indeterminate. Right Ventricle: The right ventricle is normal size. Right ventricular systolic function is borderline reduced. Atria: The left atrium is mildly dilated. Right atrial size is normal. There is no Doppler evidence for an interatrial shunt. Mitral Valve: The mitral valve leaflets appear to open well. There is no mitral valve stenosis. There is mild mitral regurgitation. Aortic Valve: The aortic valve is trileaflet. The aortic valve opens well. There is no aortic valve stenosis. There is trace aortic regurgitation. Tricuspid Valve: The tricuspid valve leaflets are thin and pliable. There is mild tricuspid regurgitation. Pulmonary artery pressures cannot be estimated because of the lack of a measurable TR jet velocity but the IVC suggests a CVP of around 8 mmHg. Pulmonic Valve: The pulmonic valve is not well seen, but is grossly normal. There is trace pulmonic regurgitation. Great Vessels: The aortic root is normal size. The ascending aorta is normal in size. The aortic arch could not be visualized. The pulmonary artery is normal size. The IVC is dilated (diameter is greater than 2.1 cm) yet it collapses greater than 50% with a sniff. This suggests a right atrial pressure of 8 mm Hg. Pericardium/ Pleura There is a trivial pericardial effusion noted. A left pleural effusion noted. MMode/2D Measurements & Calculations LVIDd: 5.1 cm LVOT diam: 2.2 cm LVIDs: 3.3 cm Ao root diam: 3.9 cm FS: 35.2 % asc Aorta Diam: 3.7 cm EPSS: 0.54 cm IVSd: 1.3 cm LVPWd: 1.2 cm LV rucker. diameter/BSA (cm/m^2): 2.2 LV sys. diameter/BSA (cm/m^2): 1.4 LA A2 area: 29.4 cm2 RA long axis: 7.1 cm LA A4 area: 23.6 cm2 RA area: 20.7 cm2 LA length (vol): 6.8 cm RA vol: 51.5 ml LA vol: 86.6 ml RA : 22.0 ml/m2 LA vol index: 37.0 ml/m2 IVC diam: 2.4 cm RVD1 (basal): 2.9 cm RVD2 (mid): 2.5 cm TAPSE: 1.8 cm Doppler Measurements & Calculations Ao V2 max: 108.6 cm/sec LVOT Max Davis: 89.5 cm/sec Ao V2 mean: 79.5 cm/sec LV V1 max P.2 mmHg Ao max P.7 mmHg LV V1 VTI: 15.9 cm Ao mean P.8 mmHg SANDER(I,D): 2.9 cm2 Ao V2 VTI: 19.7 cm SANDER(V,D): 3.0 cm2 sev ratio: 0.80 SANDER indexed to BSA (cm^2/m^2): 1.3 MV E max davis: 68.2 cm/sec TR max davis: 192.2 cm/sec MV A max davis: 25.0 cm/sec TR max P.0 mmHg MV E/A: 2.7 PA V2 max: 99.8 cm/sec Med Peak E' Davis: 4.6 cm/sec PA V2 mean: 65.0 cm/sec E/E' med: 15.0 PA mean P.0 mmHg Lat Peak E' Davis: 5.4 cm/sec PA pr(Accel): 25.1 mmHg E/E' lat: 12.7 E/e' average: 13.9 MV dec time: 0.22 sec SV(LVOT): 58.1 ml Qp/Qs (V,Ao): 1.0/2.9 Qp/Qs (V,LVOT): 1.3/1.0 Reading Physician:07:26 PM
== END ==
LOC: ECHO 14:49
PROVIDERS: PCP Internal Medicine; Referring Provider Internal Medicine; Visit Provider Internal Medicine
DX: I08.1 Rheumatic disorders of both mitral and tricuspid valves (principal); J90 Pleural effusion, not elsewhere classified; I25.118 Atherosclerotic heart disease of native coronary artery with other forms of angina pectoris
CPT/HCPCS: 93306

== ENCOUNTER → 2025-06-26 11:37 | Outpatient (CLI) | payer MEDICARE, OTHER, SELFPAY ==
[2025-06-26 12:35] LABS: Blood Urea Nitrogen 22 mg/dL (9-20); Calcium 9.3 mg/dL (8.4-10.2); Carbon Dioxide 30 mmol/L (22-32); Chloride 103 mmol/L (98-107); Estimated Glomerular Filt Rate > 60 mL/min (>60); Glucose 83 mg/dL (70-99); HEMOLYSIS < 15 (0-50); Magnesium 1.8 mg/dL (1.6-2.3); Potassium 4.7 mmol/L (3.4-5.1); Sodium 136 mmol/L (137-145)
== END ==
PROVIDERS: PCP Internal Medicine; Referring Provider Internal Medicine; Visit Provider Internal Medicine
DX: I50.31 Acute diastolic (congestive) heart failure (principal); R79.0 Abnormal level of blood mineral
CPT/HCPCS: 36415; 80048; 83735

== ENCOUNTER → 2025-07-11 12:06 | Outpatient (CLI) | payer MEDICARE, OTHER, SELFPAY ==
[2025-07-11 14:22] LABS: Blood Urea Nitrogen 21 mg/dL (9-20); Calcium 9.1 mg/dL (8.4-10.2); Carbon Dioxide 28 mmol/L (22-32); Chloride 102 mmol/L (98-107); Estimated Glomerular Filt Rate > 60 mL/min (>60); Glucose 94 mg/dL (70-99); HEMOLYSIS < 15 (0-50); Potassium 4.5 mmol/L (3.4-5.1); Sodium 135 mmol/L (137-145)
== END ==
PROVIDERS: PCP Internal Medicine; Referring Provider Internal Medicine; Visit Provider Internal Medicine
DX: I50.32 Chronic diastolic (congestive) heart failure (principal)
CPT/HCPCS: 36415; 80048